=== PATIENT | female | born 2000 | race American Indian/Alaskan Native ===

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

== ENCOUNTER 2020-10-14 14:17 | Emergency (ER) | payer OTHER ==
[2020-10-14 15:17] VITALS: BP 137/68
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
== END 2020-10-14 16:00 | disposition home or self-care (01) ==
LOC: ED 14:17
DX: M54.5 Low back pain (principal); M54.6 Pain in thoracic spine; V87.7XXA Person injured in collision between other specified motor vehicles (traffic), initial encounter; Y93.89 Activity, other specified; Y92.488 Other paved roadways as the place of occurrence of the external cause; Y99.8 Other external cause status
CPT/HCPCS: 99281